=== PATIENT | male | born 1945 | race Caucasian/White ===

== ENCOUNTER 2021-09-29 20:05 | Inpatient (IN) | payer MEDICARE, OTHER ==
[~2021-09-29] VITALS: Ht 188 cm; Wt 124.2 kg
[2021-09-29] MEDS ORDERED: ASPI81TA27 PO (20:49)
[2021-09-29] MEDS ORDERED: SYNT175T2 PO (20:49)
[2021-09-29] MEDS ORDERED: PLAV1TAB2 PO (20:51)
[2021-09-29] MEDS ORDERED: LISI20TA33 PO (20:51)
[2021-09-29 20:57] LABS: BASO # 0.1 10^3/uL (0.0-0.2); BASO % 0.9 % (0.0-1.0); EOS # 0.4 10^3/uL (0.0-0.5); EOS % 3.4 % (0.0-3.0); HEMATOCRIT 41.2 % (42.0-52.0); HEMOGLOBIN 13.7 g/dl (13.5-17.5); LYMPH # 2.8 10^3/uL (1.5-5.0); LYMPH % 24.5 % (24.0-44.0); MEAN CORPUSCULAR HEMOGLOBIN 30.9 pg (27.0-33.0); MEAN CORPUSCULAR HGB CONC 33.3 g/dl (32.0-36.5); MONO # 1.1 10^3/uL (0.0-0.8); MONO % 9.4 % (2.0-8.0); NEUTROPHILS # 7.1 10^3/uL (1.5-8.5); NEUTROPHILS % 61.3 % (36.0-66.0); PLATELET COUNT, AUTOMATED 208 10^3/uL (150-450); RED BLOOD COUNT 4.43 10^6/uL (4.30-6.10); WHITE BLOOD COUNT 11.6 10^3/uL (4.0-10.0)
[2021-09-29 21:09] LABS: PROTHROMBIN TIME 13.6 SECONDS (12.7-14.5)
[2021-09-29 21:10] LABS: PARTIAL THROMBOPLASTIN TIME 29.7 SECONDS (25.9-37.0)
[2021-09-29 21:23] LABS: CALCIUM LEVEL 8.7 MG/DL (8.8-10.2); CREATININE FOR GFR 1.34 MG/DL (0.70-1.30); GLOMERULAR FILTRATION RATE 55.3 (>42); POTASSIUM SERUM 3.9 MEQ/L (3.5-5.1)
[2021-09-29] MEDS ORDERED: NS 1,000 ML IV ONE (21:25)
[2021-09-29 21:34] LABS: CK-MB VALUE MASS 4.4 NG/ML (<3.6); MB/CK RELATIVE INDEX 2.72 (< OR =4)
[2021-09-29] MEDS ORDERED: ONDANSETRON 4MG 2ML VIAL IV ONE (22:10)
[2021-09-29] MEDS ORDERED: ISOVUE-370 76% 100ML VIAL As Ordered ONE (22:11)
[2021-09-29] MEDS ORDERED: METOCLOPRAMIDE INJ 10MG/2ML VIAL (J2765 PER 1) IV ONE (23:05)
[2021-09-29 23:18] LABS: CK-MB VALUE MASS 3.3 NG/ML (<3.6); MB/CK RELATIVE INDEX 2.29 (< OR =4)
[2021-09-30] VITALS (35 sets, daily range): BP systolic 45–166; BP diastolic 50–100; O2SAT 97
[2021-09-30] MEDS ORDERED: ONDANSETRON 4MG 2ML VIAL IV PRN (00:20)
[2021-09-30] MEDS ORDERED: PROCHLORPERAZINE 10MG 2ML VIAL IV ONE (00:50)
[2021-09-30] MEDS ORDERED: CHLORASEPTIC SPRAY MT PRN (00:50)
[2021-09-30] MEDS ORDERED: HEPARIN SOD (PORCINE) 5000UNITS/ML 1ML VIAL/SYRINGE SQ SCH (01:00)
[2021-09-30] MEDS: D5W/0.9% SODIUM CHLORIDE 1,000 ML IV SCH ×2 (01:04→02:46)
[2021-09-30] MEDS ORDERED: MORPHINE 2 MG/ML 1ML VIAL IV PRN ×2 (01:05→05:30)
[2021-09-30 01:07] LABS: RSV AMPLIFICATION NEGATIVE (NEGATIVE)
[2021-09-30] MEDS ORDERED: LORazepam 2 MG/ML VIAL IV PRN (01:25)
[2021-09-30] MEDS ORDERED: MULTCHW12 PO (01:58)
[2021-09-30] MEDS ORDERED: SYNT175T2 PO (01:58)
[2021-09-30] MEDS ORDERED: LISI20TA33 PO (01:58)
[2021-09-30] MEDS ORDERED: DILT1CAP46 PO (01:58)
[2021-09-30] MEDS ORDERED: ASPI1CHW3 PO (01:58)
[2021-09-30] MEDS ORDERED: ATOR80TA59 PO (01:58)
[2021-09-30] MEDS ORDERED: PLAV1TAB2 PO (01:58)
[2021-09-30] MEDS ORDERED: HOME MED LIST COMPLETE! XX SCH (02:00)
[2021-09-30] MEDS: THIAMINE 200MG 2ML VIAL IV SCH ×3 (03:04→20:57)
[2021-09-30] MEDS: FOLIC ACID 1 MG in NS 50 ML IV SCH (03:47)
[2021-09-30] MEDS ORDERED: LORazepam 2 MG/ML VIAL IV ONE (04:10)
[2021-09-30] MEDS ORDERED: LORazepam 2 MG/ML VIAL As Ordered ONE (04:15)
[2021-09-30] MEDS ORDERED: MORPHINE 2 MG/ML 1ML VIAL IV ONE (05:00)
[2021-09-30 06:21] LABS: BASO % 0.2 % (0.0-1.0); EOS % 0.1 % (0.0-3.0); HEMATOCRIT 37.5 % (42.0-52.0); HEMOGLOBIN 12.5 g/dl (13.5-17.5); LYMPH # 0.6 10^3/uL (1.5-5.0); LYMPH % 3.6 % (24.0-44.0); MEAN CORPUSCULAR HEMOGLOBIN 30.6 pg (27.0-33.0); MEAN CORPUSCULAR HGB CONC 33.3 g/dl (32.0-36.5); MEAN CORPUSCULAR VOLUME 91.9 fl (80.0-96.0); MONO # 0.9 10^3/uL (0.0-0.8); MONO % 5.1 % (2.0-8.0); NEUTROPHILS % 90.6 % (36.0-66.0); PLATELET COUNT, AUTOMATED 225 10^3/uL (150-450); RED BLOOD COUNT 4.08 10^6/uL (4.30-6.10); WHITE BLOOD COUNT 16.5 10^3/uL (4.0-10.0)
[2021-09-30 06:54] LABS: ALBUMIN 3.5 GM/DL (3.2-5.2); BILIRUBIN,TOTAL 0.8 MG/DL (0.2-1.0); CALCIUM LEVEL 8.4 MG/DL (8.8-10.2); CREATININE FOR GFR 1.37 MG/DL (0.70-1.30); GLOMERULAR FILTRATION RATE 53.9 (>42); MAGNESIUM LEVEL 1.9 MG/DL (1.8-2.4); POTASSIUM SERUM 3.8 MEQ/L (3.5-5.1); TOTAL PROTEIN 6.8 GM/DL (6.4-8.2)
[2021-09-30 06:55] LABS: CK-MB VALUE MASS 4.3 NG/ML (<3.6); MB/CK RELATIVE INDEX 2.67 (< OR =4)
[2021-09-30] MEDS ORDERED: MORPHINE 4 MG/ML 1ML VIAL/SYRINGE IV PRN (08:15)
[2021-09-30] MEDS ORDERED: PANTOPRAZOLE 40MG VIAL IV SCH (09:00)
[2021-09-30] MEDS ORDERED: MVI -ADULT INJECTION 10ML VIAL IV SCH (09:00)
[2021-09-30] MEDS: PIPERACILLIN/TAZOBACTAM SOD 3.375 GM in D5W MINI-BAG PLUS 50 ML IV SCH ×2 (11:46→21:00)
[2021-09-30] MEDS: NS 1,000 ML IV SCH ×2 (12:04→21:00)
[2021-09-30] MEDS ORDERED: diltiaZEM 125 MG in NS 100 ML IV SCH (13:00)
[2021-09-30] MEDS ORDERED: NS 500 ML IV ONE (13:20)
[2021-09-30] MEDS ORDERED: NS 1,000 ML IV ONE ×4 (13:35→15:15)
[2021-09-30] MEDS ORDERED: NOREPINEPHRINE 4 MG/4 ML AMP As Ordered ONE (13:45)
[2021-09-30] MEDS ORDERED: MIDAZOLAM INJ 2MG/2ML VIAL (J2250 PER 1MG) As Ordered ONE ×2 (13:50→16:10)
[2021-09-30] MEDS ORDERED: VASOPRESSIN INJ 20 UNITS in NS 499 ML IV SCH (14:00)
[2021-09-30] MEDS ORDERED: NOREPINEPHRINE BITARTRATE 8 MG in D5W 492 ML IV SCH (14:00)
[2021-09-30 14:08] LABS: HEMATOCRIT 37.4 % (42.0-52.0); HEMOGLOBIN 11.7 g/dl (13.5-17.5); MEAN CORPUSCULAR HEMOGLOBIN 29.8 pg (27.0-33.0); MEAN CORPUSCULAR HGB CONC 31.3 g/dl (32.0-36.5); MEAN CORPUSCULAR VOLUME 95.2 fl (80.0-96.0); PLATELET COUNT, AUTOMATED 210 10^3/uL (150-450); RED BLOOD COUNT 3.93 10^6/uL (4.30-6.10); WHITE BLOOD COUNT 12.7 10^3/uL (4.0-10.0)
[2021-09-30] MEDS ORDERED: EPINEPHrine INJ 1 MG/ML 1ML AMP As Ordered ONE (14:09)
[2021-09-30] MEDS ORDERED: VASOPRESSIN INJ 20 UNITS/ML VIAL As Ordered ONE ×2 (14:09→17:41)
[2021-09-30] MEDS: EPINEPHrine HCL INJ 1 MG in D5W 240 ML IV SCH ×2 (14:15→23:29)
[2021-09-30 14:31] LABS: ANISOCYTOSIS 1+; CK-MB VALUE MASS 3.2 NG/ML (<3.6); LYMPHOCYTES 6 % (16-44); MB/CK RELATIVE INDEX 2.09 (< OR =4); MONOCYTES 5 % (0-5); NEUTROPHILS 86 % (28-66); PLATELET ESTIMATE NORMAL (NORMAL)
[2021-09-30 14:32] LABS: ALBUMIN 2.9 GM/DL (3.2-5.2); CALCIUM LEVEL 8.5 MG/DL (8.8-10.2); CREATININE FOR GFR 1.96 MG/DL (0.70-1.30); GLOMERULAR FILTRATION RATE 35.7 (>42); MAGNESIUM LEVEL 2.1 MG/DL (1.8-2.4); OVALOCYTES 1+; POTASSIUM SERUM 4.1 MEQ/L (3.5-5.1)
[2021-09-30] MEDS ORDERED: AMIODARONE HCL 150 MG/100 ML PREMIXED BAG (NEXTERONE) (J0282 PER 30MG) As Ordered ONE (14:45)
[2021-09-30] MEDS: LEVOTHYROXINE 100MCG (0.1MG) 5ML SDV PF (SOLUTION FORM) IV SCH (14:45)
[2021-09-30] MEDS ORDERED: AMIODARONE HCL 150 MG in IV 1 EA IV STA (14:45)
[2021-09-30] MEDS ORDERED: INSULIN REGULAR 100UNITS IN 0.9% SODIUM CHLORIDE 100ML IVBAG As Ordered ONE (15:19)
[2021-09-30] MEDS ORDERED: SODIUM BICARBONATE 8.4% INJ 50 ML SYRINGE As Ordered ONE ×2 (15:20→15:41)
[2021-09-30] MEDS ORDERED: ROCURONIUM BROMIDE 50 MG/5 ML VIAL As Ordered ONE ×2 (15:24→18:27)
[2021-09-30] MEDS ORDERED: LIDOCAINE 2% 100MG/5ML SDV (FOR ANES.) As Ordered ONE (15:24)
[2021-09-30] MEDS ORDERED: propofoL 200 MG/20 ML VIAL As Ordered ONE (15:25)
[2021-09-30] MEDS ORDERED: fentaNYL 100 MCG/2 ML INJECTION As Ordered ONE (15:26)
[2021-09-30] MEDS ORDERED: PANTOPRAZOLE 40MG VIAL IV ONE (15:30)
[2021-09-30 15:33] LABS: VENOUS BASE EXCESS -14.5 (-2.0-2.0); VENOUS HCO3 15.4 MEQ/L (23.0-27.0); VENOUS O2 SATURATION 52.7 % (60.0-80.0); VENOUS PARTIAL PRESSURE CO2 54.4 mmHg (38.0-50.0); VENOUS PARTIAL PRESSURE O2 37.6 mmHg (30.0-50.0); VENOUS STANDARD HCO3 12.6 MEQ/L; VENOUS TOTAL CO2 17.1 MEQ/L (24.0-28.0)
[2021-09-30] MEDS: SODIUM BICARBONATE 150 MEQ in D5W 1,000 ML IV SCH (15:35)
[2021-09-30] MEDS: INSULIN REGULAR IN 0.9 % NACL 100 UNIT in IV 1 EA IV SCH ×2 (15:35)
[2021-09-30 15:37] LABS: ABG BASE EXCESS -13.9 (-2.0-2.0); ABG HCO3 12.5 MEQ/L (22.0-26.0); ABG O2 SATURATION 95.9 % (95.0-99.0); ABG PARTIAL PRESSURE CO2 30.8 mmHg (35.0-45.0); ABG PARTIAL PRESSURE O2 102.2 mmHg (75.0-100.0); ABG STANDARD HCO3 13.6 MEQ/L (22.0-26.0); ABG TOTAL CO2 13.4 MEQ/L (23.0-31.0)
[2021-09-30 15:38] LABS: ABG pH (ARTERIAL) 7.226 UNITS (7.350-7.450)
[2021-09-30] MEDS ORDERED: ETOMIDATE INJ 20MG/10ML VIAL As Ordered ONE (15:46)
[2021-09-30] MEDS ORDERED: KETAMINE HCL 200 MG/20 ML VIAL As Ordered ONE (15:49)
[2021-09-30 15:50] LABS: INR 1.21; PROTHROMBIN TIME 15.7 SECONDS (12.7-14.5)
[2021-09-30] MEDS ORDERED: ceFAZolin 1GM VIAL (J0690 PER 500MG) As Ordered ONE (16:33)
[2021-09-30 17:06] LABS: HEMATOCRIT 32.6 % (42.0-52.0); HEMOGLOBIN 10.9 g/dl (13.5-17.5); MEAN CORPUSCULAR HEMOGLOBIN 31.6 pg (27.0-33.0); MEAN CORPUSCULAR HGB CONC 33.4 g/dl (32.0-36.5); MEAN CORPUSCULAR VOLUME 94.5 fl (80.0-96.0); PLATELET COUNT, AUTOMATED 204 10^3/uL (150-450); RED BLOOD COUNT 3.45 10^6/uL (4.30-6.10)
[2021-09-30] MEDS ORDERED: MIDAZOLAM 5MG/ML 1ML VIAL (J2250 PER 1MG) As Ordered ONE (17:07)
[2021-09-30] MEDS ORDERED: CALCIUM CHLORIDE 10% 1 GM/10 ML SYR As Ordered ONE ×2 (17:10→17:55)
[2021-09-30 17:39] LABS: INR 1.15; PROTHROMBIN TIME 15.1 SECONDS (12.7-14.5)
[2021-09-30] MEDS ORDERED: propofoL 500 MG/50 ML VIAL As Ordered ONE (18:32)
[2021-09-30] MEDS ORDERED: PROPOFOL 1,000 MG/100 ML VIAL As Ordered ONE (19:17)
[2021-09-30] MEDS ORDERED: SODIUM BICARBONATE 8.4% INJ 50 ML SYRINGE ONE (20:22)
[2021-09-30] MEDS: INSULIN IV RATE CHANGE DOCUMENTATION ML/HR XX SCH ×2 (20:48→23:01)
[2021-09-30] MEDS: PANTOPRAZOLE SODIUM 40 MG in D5W 50 ML IV SCH (21:03)
[2021-09-30 21:11] LABS: BILIRUBIN, URINE MANUAL NEGATIVE (NEGATIVE); GLUCOSE, URINE (UA) MANUAL 2+(250 MG/DL) mg/dL (NEGATIVE); KETONE, URINE MANUAL NEGATIVE (NEGATIVE); UROBILINOGEN, URINE MANUAL NORMAL (NORMAL)
[2021-09-30 21:24] LABS: BACTERIA, URINE NONE SEEN; MUCUS, URINE MOD AMOUNT (NEGATIVE); RENAL EPITHELIAL CELLS, URINE SMALL AMOUNT /hpf; SQUAMOUS EPITHELIAL CELL URINE NONE SEEN /hpf (SMALL AMT); TRANSITIONAL EPI CELLS, URINE MOD AMOUNT /hpf
[2021-09-30 21:25] LABS: ABG BASE EXCESS -9.1 (-2.0-2.0); ABG HCO3 16.8 MEQ/L (22.0-26.0); ABG O2 SATURATION 98.7 % (95.0-99.0); ABG PARTIAL PRESSURE CO2 36.4 mmHg (35.0-45.0); ABG PARTIAL PRESSURE O2 239.3 mmHg (75.0-100.0); ABG STANDARD HCO3 17.3 MEQ/L (22.0-26.0); ABG TOTAL CO2 17.9 MEQ/L (23.0-31.0); ABG pH (ARTERIAL) 7.281 UNITS (7.350-7.450)
[2021-09-30 21:25] LABS: HYALINE CAST, URINE NONE SEEN /lpf (0-1); WHITE BLOOD CELL CAST, URINE 0-1 /lpf
[2021-09-30 21:27] LABS: URIC ACID CRYSTALS, URINE SMALL AMOUNT /hpf
[2021-09-30 21:28] LABS: AMORPHOUS SEDIMENT, URINE MOD AMOUNT (NEGATIVE)
[2021-09-30] MEDS: NOREPINEPHRINE BITARTRATE 8 MG in D5W 492 ML IV SCH ×2 (21:55→23:56)
[2021-09-30] MEDS: propofoL 1,000 MG in IV 1 EA IV SCH (22:30)
[2021-09-30] MEDS: VASOPRESSIN INJ 20 UNITS in NS 499 ML IV SCH (22:32)
[2021-09-30] MEDS ORDERED: SODIUM BICARBONATE 8.4% INJ 50 ML SYRINGE IV STA ×2 (22:48)
[2021-09-30] MEDS ORDERED: CALCIUM CHLORIDE 10% 1 GM/10 ML SYR IV ONE (23:00)
[2021-09-30] MEDS ORDERED: EPINEPHrine HCL INJ 4 MG in D5W 960 ML IV SCH (23:30)
[2021-09-30] MEDS: HYDROCORTISONE 100 MG/2 ML VIAL (J1720 PER 1) IV SCH (23:33)
[2021-09-30] MEDS: fentaNYL CITRATE 1,000 MCG in NS 80 ML IV SCH (23:47)
[2021-10-01] VITALS (84 sets, daily range): BP systolic 80–281; BP diastolic 49–234
[2021-10-01] MEDS: PIPERACILLIN/TAZOBACTAM SOD 3.375 GM in D5W MINI-BAG PLUS 50 ML IV SCH ×4 (00:24→19:40)
[2021-10-01] MEDS: SODIUM BICARBONATE 150 MEQ in D5W 1,000 ML IV SCH (00:30)
[2021-10-01] MEDS: PANTOPRAZOLE SODIUM 40 MG in D5W 50 ML IV SCH ×6 (00:30→21:32)
[2021-10-01] MEDS: INSULIN IV RATE CHANGE DOCUMENTATION ML/HR XX SCH (01:26)
[2021-10-01] MEDS: propofoL 1,000 MG in IV 1 EA IV SCH ×5 (01:32→21:19)
[2021-10-01 04:03] LABS: HEMATOCRIT 45.4 % (42.0-52.0); MEAN CORPUSCULAR HEMOGLOBIN 30.8 pg (27.0-33.0); MEAN CORPUSCULAR HGB CONC 33.7 g/dl (32.0-36.5); MEAN CORPUSCULAR VOLUME 91.3 fl (80.0-96.0); PLATELET COUNT, AUTOMATED 108 10^3/uL (150-450); RED BLOOD COUNT 4.97 10^6/uL (4.30-6.10); WHITE BLOOD COUNT 4.9 10^3/uL (4.0-10.0)
[2021-10-01 04:05] LABS: HEMOGLOBIN 15.3 g/dl (13.5-17.5)
[2021-10-01 04:16] LABS: INR 1.34
[2021-10-01 04:17] LABS: PARTIAL THROMBOPLASTIN TIME 38.1 SECONDS (25.9-37.0)
[2021-10-01] MEDS: FOLIC ACID 1 MG in NS 50 ML IV SCH (04:40)
[2021-10-01 04:45] LABS: ALBUMIN 2.3 GM/DL (3.2-5.2); BILIRUBIN,TOTAL 2.7 MG/DL (0.2-1.0); CALCIUM LEVEL 7.4 MG/DL (8.8-10.2); CREATININE FOR GFR 2.34 MG/DL (0.70-1.30); GLOMERULAR FILTRATION RATE 29.1 (>42); MAGNESIUM LEVEL 1.5 MG/DL (1.8-2.4); PHOSPHORUS LEVEL 3.8 MG/DL (2.5-4.9); POTASSIUM SERUM 4.4 MEQ/L (3.5-5.1); TOTAL PROTEIN 4.7 GM/DL (6.4-8.2)
[2021-10-01] MEDS: NOREPINEPHRINE BITARTRATE 8 MG in D5W 492 ML IV SCH ×3 (05:03→16:30)
[2021-10-01 05:56] LABS: HEMATOCRIT 45.3 % (42.0-52.0); HEMOGLOBIN 15.2 g/dl (13.5-17.5); MEAN CORPUSCULAR HEMOGLOBIN 30.3 pg (27.0-33.0); MEAN CORPUSCULAR HGB CONC 33.6 g/dl (32.0-36.5); MEAN CORPUSCULAR VOLUME 90.4 fl (80.0-96.0); PLATELET COUNT, AUTOMATED 101 10^3/uL (150-450); RED BLOOD COUNT 5.01 10^6/uL (4.30-6.10); WHITE BLOOD COUNT 5.6 10^3/uL (4.0-10.0)
[2021-10-01] MEDS: VASOPRESSIN INJ 20 UNITS in NS 499 ML IV SCH ×2 (06:08→17:28)
[2021-10-01] MEDS: HYDROCORTISONE 100 MG/2 ML VIAL (J1720 PER 1) IV SCH ×3 (06:15→22:28)
[2021-10-01 06:55] LABS: ALBUMIN 2.1 GM/DL (3.2-5.2); CALCIUM LEVEL 7.5 MG/DL (8.8-10.2); CREATININE FOR GFR 2.27 MG/DL (0.70-1.30); GLOMERULAR FILTRATION RATE 30.1 (>42); MAGNESIUM LEVEL 1.5 MG/DL (1.8-2.4); POTASSIUM SERUM 5.2 MEQ/L (3.5-5.1); TOTAL PROTEIN 4.7 GM/DL (6.4-8.2)
[2021-10-01 07:18] LABS: LYMPHOCYTES 37 % (16-44); METAMYELOCYTES 1 % (0-0); MONOCYTES 3 % (0-5); NEUTROPHILS 42 % (28-66)
[2021-10-01 07:20] LABS: PLATELET ESTIMATE DECREASED (NORMAL)
[2021-10-01] MEDS: NS 1,000 ML IV SCH ×4 (07:33→21:32)
[2021-10-01] MEDS ORDERED: EPINEPHrine HCL INJ 4 MG in D5W 996 ML IV SCH (07:50)
[2021-10-01] MEDS ORDERED: MAG SULF 1GM/100ML (MAG RUN) 1 GM in IV 1 EA IV STA (08:16)
[2021-10-01 09:18] LABS: ABG BASE EXCESS -0.5 (-2.0-2.0); ABG HCO3 23.3 MEQ/L (22.0-26.0); ABG O2 SATURATION 94.7 % (95.0-99.0); ABG PARTIAL PRESSURE CO2 36.3 mmHg (35.0-45.0); ABG PARTIAL PRESSURE O2 68.8 mmHg (75.0-100.0); ABG TOTAL CO2 24.5 MEQ/L (23.0-31.0); ABG pH (ARTERIAL) 7.426 UNITS (7.350-7.450)
[2021-10-01] MEDS: MAG SULF 1GM/100ML (MAG RUN) 1 GM in IV 1 EA IV SCH ×2 (09:25→10:38)
[2021-10-01] MEDS: LEVOTHYROXINE 100MCG (0.1MG) 5ML SDV PF (SOLUTION FORM) IV SCH (09:26)
[2021-10-01] MEDS: THIAMINE 200MG 2ML VIAL IV SCH ×2 (09:30→21:19)
[2021-10-01] MEDS ORDERED: LR 1,000 ML IV STA (09:57)
[2021-10-01 10:22] LABS: BASO % 0.7 % (0.0-1.0); EOS % 0.2 % (0.0-3.0); HEMATOCRIT 46.4 % (42.0-52.0); HEMOGLOBIN 15.8 g/dl (13.5-17.5); LYMPH # 0.9 10^3/uL (1.5-5.0); LYMPH % 19.5 % (24.0-44.0); MEAN CORPUSCULAR HEMOGLOBIN 29.8 pg (27.0-33.0); MEAN CORPUSCULAR HGB CONC 34.1 g/dl (32.0-36.5); MEAN CORPUSCULAR VOLUME 87.4 fl (80.0-96.0); MONO # 0.2 10^3/uL (0.0-0.8); MONO % 5.3 % (2.0-8.0); NEUTROPHILS # 3.3 10^3/uL (1.5-8.5); NEUTROPHILS % 73.2 % (36.0-66.0); RED BLOOD COUNT 5.31 10^6/uL (4.30-6.10); WHITE BLOOD COUNT 4.5 10^3/uL (4.0-10.0)
[2021-10-01 10:24] LABS: PLATELET COUNT, AUTOMATED 89 10^3/uL (150-450)
[2021-10-01] MEDS ORDERED: BUPIVACAINE/EPIN 0.25% 30 ML VIAL As Ordered ONE (10:54)
[2021-10-01] MEDS ORDERED: BUPIVACAINE LIPOSOME/PF 1.3% 20ML VIAL (13.3MG/ML)(EXPAREL) As Ordered ONE (10:55)
[2021-10-01] MEDS ORDERED: BUPIVACAINE HCL 0.25% 10ML VIAL As Ordered ONE (10:55)
[2021-10-01] MEDS ORDERED: GLUCAGON INJ 1MG VIAL SC PRN (11:05)
[2021-10-01] MEDS ORDERED: GLUCOSE 4GM CHEW TABLET PO PRN (11:05)
[2021-10-01] MEDS ORDERED: DEXTROSE 50% 50 ML SYRINGE IV PRN (11:05)
[2021-10-01 11:08] LABS: INR 1.97; PROTHROMBIN TIME 22.8 SECONDS (12.7-14.5)
[2021-10-01 11:09] LABS: FIBRINOGEN 435 MG/DL (268-480); PARTIAL THROMBOPLASTIN TIME 42.4 SECONDS (25.9-37.0)
[2021-10-01] MEDS: LR 1,000 ML IV SCH ×3 (11:09→21:31)
[2021-10-01 11:48] LABS: D-DIMER QUANT > 4000 ng/ml (<500)
[2021-10-01 12:18] LABS: ALBUMIN 2.3 GM/DL (3.2-5.2); BILIRUBIN,TOTAL 4.1 MG/DL (0.2-1.0); CALCIUM LEVEL 7.2 MG/DL (8.8-10.2); CREATININE FOR GFR 2.67 MG/DL (0.70-1.30); POTASSIUM SERUM 5.2 MEQ/L (3.5-5.1); TOTAL PROTEIN 4.9 GM/DL (6.4-8.2)
[2021-10-01] MEDS ORDERED: fentaNYL 100 MCG/2 ML INJECTION As Ordered ONE (12:25)
[2021-10-01] MEDS ORDERED: MIDAZOLAM INJ 2MG/2ML VIAL (J2250 PER 1MG) As Ordered ONE (12:25)
[2021-10-01] MEDS ORDERED: ROCURONIUM BROMIDE 50 MG/5 ML VIAL As Ordered ONE (12:25)
[2021-10-01] MEDS ORDERED: MICAFUNGIN SODIUM 100 MG in D5W MINI-BAG PLUS 100 ML IV SCH (13:00)
[2021-10-01] MEDS: INSULIN LISPRO (NovoLOG) PER UNIT SC SCH ×3 (13:03→20:00)
[2021-10-01 15:00] LABS: HEMATOCRIT 48.1 % (42.0-52.0); HEMOGLOBIN 16.4 g/dl (13.5-17.5); MEAN CORPUSCULAR HEMOGLOBIN 30.4 pg (27.0-33.0); MEAN CORPUSCULAR HGB CONC 34.1 g/dl (32.0-36.5); MEAN CORPUSCULAR VOLUME 89.2 fl (80.0-96.0); RED BLOOD COUNT 5.39 10^6/uL (4.30-6.10); WHITE BLOOD COUNT 6.1 10^3/uL (4.0-10.0)
[2021-10-01 15:05] LABS: PLATELET COUNT, AUTOMATED 85 10^3/uL (150-450)
[2021-10-01] MEDS: fentaNYL CITRATE 1,000 MCG in NS 80 ML IV SCH (22:28)
[2021-10-02] VITALS (7 sets, daily range): BP systolic 88–95; BP diastolic 52–55
[2021-10-02] MEDS: INSULIN LISPRO (NovoLOG) PER UNIT SC SCH
[2021-10-02] MEDS: VASOPRESSIN INJ 20 UNITS in NS 499 ML IV SCH (00:18)
[2021-10-02] MEDS: PIPERACILLIN/TAZOBACTAM SOD 3.375 GM in D5W MINI-BAG PLUS 50 ML IV SCH (00:18)
[2021-10-02] MEDS: NOREPINEPHRINE BITARTRATE 8 MG in D5W 492 ML IV SCH (00:42)
[2021-10-02] MEDS: propofoL 1,000 MG in IV 1 EA IV SCH (00:43)
[2021-10-02] MEDS ORDERED: LORazepam 2 MG/ML VIAL IV PRN (01:40)
[2021-10-02] MEDS ORDERED: MORPHINE 2 MG/ML 1ML VIAL IV PRN (01:40)
[2021-10-02] MEDS ORDERED: SCOPOLAMINE 1MG TRANSDERMAL PATCH TOP PRN (01:40)
== END 2021-10-02 02:47 | disposition expired | DRG 326 ==
LOC: M ED 20:05 → M ED INP 09-30 00:19 → M MSPAV 09-30 03:20 → M PCU 09-30 10:40 → M ICU 09-30 14:43
PROVIDERS: ADMIT Family Medicine; ATTEND Internal Medicine
PROC: 0DC60ZZ Extirpation of Matter from Stomach, Open Approach (ICD-10-PCS; 2021-09-30)
PROC: 30233N1 Transfusion of Nonautologous Red Blood Cells into Peripheral Vein, Percutaneous Approach (ICD-10-PCS; 2021-09-30)
PROC: 30233K1 Transfusion of Nonautologous Frozen Plasma into Peripheral Vein, Percutaneous Approach (ICD-10-PCS; 2021-09-30)
PROC: 5A1945Z Respiratory Ventilation, 24-96 Consecutive Hours (ICD-10-PCS; 2021-09-30)
PROC: 0DB60ZZ Excision of Stomach, Open Approach (ICD-10-PCS; principal; 2021-09-30 15:17)
PROC: 0WJG0ZZ Inspection of Peritoneal Cavity, Open Approach (ICD-10-PCS; 2021-10-01)
PROC: 30233R1 Transfusion of Nonautologous Platelets into Peripheral Vein, Percutaneous Approach (ICD-10-PCS; 2021-10-01)
DX: K55.022 Diffuse acute infarction of small intestine (principal); A41.9 Sepsis, unspecified organism; R65.21 Severe sepsis with septic shock; J96.00 Acute respiratory failure, unspecified whether with hypoxia or hypercapnia; D65 Disseminated intravascular coagulation [defibrination syndrome]; K31.1 Adult hypertrophic pyloric stenosis; I48.20 Chronic atrial fibrillation, unspecified; E87.2 Acidosis; N17.9 Acute kidney failure, unspecified; R57.8 Other shock; Z66 Do not resuscitate; I10 Essential (primary) hypertension; M19.90 Unspecified osteoarthritis, unspecified site; E03.9 Hypothyroidism, unspecified; Z98.84 Bariatric surgery status; Z90.49 Acquired absence of other specified parts of digestive tract; Z96.653 Presence of artificial knee joint, bilateral; Z79.82 Long term (current) use of aspirin; Z79.02 Long term (current) use of antithrombotics/antiplatelets; Z79.899 Other long term (current) drug therapy